=== PATIENT | male | born 1960 | race African-American/Black ===

== ENCOUNTER 2016-09-21 06:47 | Observation (INO) | payer BC, OTHER ==
[~2016-09-21] VITALS: Ht 185.4 cm; Wt 108.4 kg
[~2016-09-21 06:47] MED LIST: HYDROCODONE-AP1 EAC6 PO; MOBIC15 MG PO
[2016-09-21 10:45] VITALS: BP 125/88
[2016-09-21 16:00] VITALS: BP 140/91
[2016-09-21 16:30] VITALS: BP 135/86
[2016-09-21 17:00] VITALS: BP 144/96
[2016-09-21 18:04] VITALS: BP 138/89
[2016-09-21 20:44] VITALS: BP 147/84
[2016-09-22 04:08] LABS: POTASSIUM 4.2 mmol/L (3.5-5.1)
[2016-09-22 04:21] LABS: HEMATOCRIT 39.9 % (42.0-52.0); HEMOGLOBIN 13.5 gm/dL (14.0-18.0)
[2016-09-22 04:30] VITALS: BP 113/65
[2016-09-22 07:32] VITALS: BP 117/77
[2016-09-22 14:47] VITALS: BP 111/65
[2016-09-22 16:52] VITALS: BP 111/65
[2016-09-22 20:00] VITALS: BP 118/74
[2016-09-23 03:22] VITALS: BP 123/62
[2016-09-23 08:07] VITALS: BP 130/81
== END 2016-09-23 13:44 | disposition home or self-care (01) ==
LOC: TBA 06:47 → 5S 06:47
PROVIDERS: Orthopaedic Surgery Foot and Ankle Surgery
DX: M19.071 Primary osteoarthritis, right ankle and foot (principal)
CPT/HCPCS: 50010; 50101; 50386; 50612; 50950; 51014; 51038; 51412; 51647; 53400; 54170; 56524; 56526; 57091; 62110; 62900; 70005